=== PATIENT | male | born 1990 | race Caucasian/White ===

== ENCOUNTER 2022-04-14 10:27 | Emergency (ER) | payer OTHER, SELFPAY ==
[2022-04-14 10:32] VITALS: BP 168/107; PULSE 103; RESP 14; TEMP 36.2; O2SAT 97
[2022-04-14 10:41] VITALS: BP 168/107; PULSE 103; RESP 14; TEMP 36.2; O2SAT 97
[2022-04-14 11:14] VITALS: BP 166/82
[2022-04-14] MEDS: TETANUS,DIPHTHERIA,AC PERTUSSIS ADULT (0.5 ML) BOOSTRIX IM (11:21)
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
== END 2022-04-14 11:36 | disposition home or self-care (01) ==
PROVIDERS: Emergency Provider Nurse Practitioner Family; PCP Family Medicine
DX: S41.112A Laceration without foreign body of left upper arm, initial encounter (principal); W25.XXXA Contact with sharp glass, initial encounter; Z23 Encounter for immunization
CPT/HCPCS: 90471; 90715; 99203; G0463

== ENCOUNTER 2022-05-30 17:33 | Emergency (ER) | payer OTHER, SELFPAY ==
--- NOTE | 2022-05-30 17:34 | ED.URI ---
HPI - URI/Sore Throat General Chief Complaint: Upper Respiratory Infection Stated Complaint: sore throat fever headache Time Seen by Provider: 05/30/22 17:34 Source: patient Mode of arrival: ambulatory Limitations: no limitations History of Present Illness HPI Narrative: Mr. Espinal is a 32-year-old male patient presenting to the clinic today with complaints of sore throat, fever, and headache x3 days. He reports he has felt feverish although he does not own a thermometer so he does not know what his temperature has been but he has had chills as well. He denies any known exposure to a baby COVID, flu, or strep. Notes that his throat has gotten worse yesterday with exudate. He denies cough MD elicited complaint: fever, sore throat and other (Headache) Related Data Allergies Allergy/AdvReac Type Severity Reaction Status Date / Time morphine Allergy Unknown Hives Verified 05/30/22 17:41 Review of Systems Review of Systems: Pertinent positives per HPI. Patient denies any rash, visual changes, dizziness, cough, shortness of breath, chest pain, palpitations, nausea, vomiting, diarrhea, constipation, abdominal pain, or any urinary issues. [facility] Past Medical History Medical History Anxiety Surgical History Surgical History H/O inguinal hernia repair Comments At the time of my signature, I reviewed and agree with the nursing past medical, surgical, social, and family history. There is no relevant family history pertinent to the patient complaint. Exam Narrative: General: Well-developed, well nourished, in no apparent distress Head: Normocephalic, atraumatic Eyes: Pupils equally round and reactive to light bilaterally, EOM intact, sclera and conjunctive clear, no discharge, lids normal Ears: TMs intact and clear, ear canals clear, no drainage, grossly hearing normal. Nose: Nares patent, no discharge, no inflammation, no sinus tenderness. Mouth: Oral pharynx without lesions or masses, good dentition, MMM. Tonsillar enlargement with erythremia and white exudate Neck: Supple, trachea midline, enlargement of anterior cervical nodes, no thyroid masses or goiter palpable. Cardio: Regular rate and rhythm, s1 and s2 normal, no murmur appreciated. Resp: Clear to auscultation bilaterally, no rhonchi, rales, wheezing or rubs Course Course Emergency Course: Portions of this record may have been created with voice recognition software. Level of Care: Express Care Visit Vital Signs Vital signs: Vital Signs Temperature 37.7 C H 05/30/22 17:38 Pulse Rate 104 H 05/30/22 17:38 Respiratory Rate 20 05/30/22 17:38 Blood Pressure 153/92 H 05/30/22 17:38 Pulse Oximetry 98 05/30/22 17:38 Oxygen Delivery Room Air 05/30/22 17:38 Temperature 37.7 C H 05/30/22 17:38 Pulse Rate 104 H 05/30/22 17:38 Respiratory Rate 20 05/30/22 17:38 Blood Pressure 153/92 H 05/30/22 17:38 Pulse Oximetry 98 05/30/22 17:38 Oxygen Delivery Room Air 05/30/22 17:38 Vital signs reviewed MDM - URI/Sore Throat MDM Narrative Medical decision making narrative: At the time of visit patient is resting comfortably on exam table. Centor criteria is 4-4 so I will empirically treat for strep. Prescription for amoxicillin was sent to the pharmacy and patient voiced understanding of supportive measures and discharge instructions and agrees to the treatment plan. Differential Diagnosis Differential diagnosis: Likely upper respiratory infection, otitis media, sinusitis, viral infection, bronchitis, influenza, pharyngitis and other (COVID) Discharge Plan Discharge Clinical Impression: Exudative pharyngitis Patient Disposition: Home, Self-Care Condition: Stable Instructions: Antibiotic Form, Pharyngitis (ED) Additional Instructions: Centor criteria for strep pharyngitis is 4 out of 4 Will empiric
[2022-05-30 17:38] VITALS: BP 153/92; PULSE 104; RESP 20; TEMP 37.7; O2SAT 98
== END 2022-05-30 17:54 | disposition home or self-care (01) ==
PROVIDERS: Emergency Provider Nurse Practitioner Family
DX: J02.9 Acute pharyngitis, unspecified (principal)
CPT/HCPCS: 99213; G0463

== ENCOUNTER 2022-10-10 19:22 | Emergency (ER) | payer OTHER, SELFPAY ==
--- NOTE | ~2022-10-10 | XR_ITS ---
EXAMINATION: XR nasal bones min 3V DATE: 10/10/2022 19:42 INDICATION: Nose injury and pain and swelling. TECHNIQUE: 3 views of the nasal bones were obtained. COMPARISON: None. FINDINGS: There are nondisplaced oblique fractures of the nasal bones. The nasal septum is at midline . IMPRESSION: 1. Bilateral nasal bone fractures. Reviewed, dictated and finalized at location A. ECT MANAGER/DESIGN MANAGER
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
[2022-10-10 19:28] VITALS: BP 150/79; PULSE 135; RESP 16; TEMP 37.3; O2SAT 96
== END 2022-10-10 19:57 | disposition home or self-care (01) ==
PROVIDERS: Emergency Provider Nurse Practitioner Family; PCP Nurse Practitioner Family
DX: S02.2XXA Fracture of nasal bones, initial encounter for closed fracture (principal); V89.2XXA Person injured in unspecified motor-vehicle accident, traffic, initial encounter
CPT/HCPCS: 70160; 99213; G0463

== ENCOUNTER 2022-12-17 15:46 | Emergency (ER) | payer BC, MEDICAID, SELFPAY ==
[2022-12-17 16:00] VITALS: BP 161/91; PULSE 92; RESP 20; TEMP 37.2; O2SAT 99
--- NOTE | 2022-12-17 16:47 | ED.DENTAL ---
HPI - Dental/Oral General Chief complaint: Dental/Oral Stated complaint: tooth pain Time Seen by Provider: 12/17/22 16:40 Source: patient, RN notes reviewed and old records reviewed Mode of arrival: ambulatory Limitations: no limitations History of Present Illness HPI Narrative: 32-year-old male who presents to [facility] with complaints of dental pain which started 2 weeks ago with increased symptoms since yesterday. Patient reports that he had red pus pocket on the anterior gum aspect above #9 tooth which he popped with purulent drainage noted. Patient also has hole in molar to the right lower tooth #30. Patient reports that he had a prior root canal on #9 tooth with tooth noted to be loose. Patient reports that he has dental appointment on the 16 of January but is going to call and see if there is any way he can get in sooner..Patient has taken Ibuprofen and Tylenol for his discomfort. MD Complaint: tooth pain Location: Tooth # (9,30) Onset (ago): week(s) (2 with increased symptoms since yesterday) Severity scale (1-10): 5 Treatment prior to arrival: oral analgesic (Tylenol and Ibuprofen) Related Data Allergies Allergy/AdvReac Type Severity Reaction Status Date / Time morphine Allergy Unknown Hives Verified 05/30/22 17:41 Review of Systems Review of Systems: CONSTITUTIONAL: Denies fever, chills, or sweats. ENT: Denies rhinorrhea, congestion, sore throat, or otalgia. Reports dental pain to #9 tooth with red gum with lesion above tooth and tooth is loose, also pain to #30 tooth with obvious carries noted CARDIOVASCULAR: Denies chest pain, palpitations, or edema. RESPIRATORY: Denies cough or dyspnea. SKIN: Denies rash or itching. MUSCULOSKELETAL: Denies myalgia. NEUROLOGIC: Denies headache All systems reviewed & are unremarkable except as noted in HPI and below PMFSH Past Medical History Medical History (Updated 12/19/22 @ 19:36 by Marylin Catalan NP) Anxiety Fracture of ankle, right, closed Fracture of right hand Surgical History Surgical History H/O inguinal hernia repair Social History Social History (Updated 12/19/22 @ 19:37 by Marylin Catalan NP) Smoking packs per day: 0.5 Smoking cigarettes per day: 10.0 Years smoked: 10 Smoking pack-years: 5.00 Smoking status: Current every day smoker Tobacco type: cigarettes Alcohol intake: current Alcohol use details: social Substance use type: does not use Living arrangements: with family Gender identity (if verbalized by the patient): Male Comments At time of signature, agree with nursing past medical, surgical, social and family history. There is no relevant family history pertinent to the presenting complaint Exam Narrative: GENERAL: Well-appearing, well-nourished, and in no acute distress. HEAD: Normocephalic, atraumatic. EYES: PERRLA and EOMI. ENT: Nares clear, no rhinorrhea or epistaxis. Mucous membranes moist. Abscess to gum above #9 tooth with tooth noted to be loose, dental caries #30 tooth, no trismus, .No Norberto angina noted NECK: Supple. no lymphadenopathy CHEST: Clear to auscultation. No respiratory distress SAO2 99% on room air HEART: Regular rate and rhythm. No murmur heard. Normal peripheral pulses SKIN: Warm, dry, no rash. NEURO: No focal deficits. Alert and oriented x3. Course Course Emergency Course: Patient is aware of diagnosis, understands and agrees to treatment plan. Anticipatory guidance given. Patient agrees to follow-up as directed and is aware of reasons to seek care at the emergency department. Portions of this record may have been created with voice recognition software Level of Care: Express Care Visit Vital Signs Vital signs: Vital Signs Temperature 37.2 C 12/17/22 16:00 Pulse Rate 92 12/17/22 16:00 Respiratory Rate 20 12/17/22 16:00 Blood Pressure 161/91 H 12/17/22 16:00 Pulse Oximetry 99 12/17/22 16:00 Oxygen Deliv
== END 2022-12-17 17:09 | disposition home or self-care (01) ==
PROVIDERS: Emergency Provider Registered Nurse; PCP Nurse Practitioner Family
DX: K04.7 Periapical abscess without sinus (principal); K08.89 Other specified disorders of teeth and supporting structures; F17.210 Nicotine dependence, cigarettes, uncomplicated
CPT/HCPCS: 99213; G0463